=== PATIENT | male | born 1950 | race Caucasian/White ===

== ENCOUNTER 2017-02-12 07:43 | Day surgery (SDC) | payer MEDICARE, OTHER ==
[~2017-02-12] VITALS: Ht 177.8 cm; Wt 97.5 kg
[~2017-02-12 07:43] MED LIST: CLOPIDOGREL75 MG PO; PANTOPRAZOLE SO40 MG PO; SERTRALINE50 MG PO; SUCRALFATE1 GM PO; TYLENOL 8 HOUR650 MG PO
[2017-02-12 09:11] VITALS: BP 132/88
== END 2017-02-12 09:20 | disposition home or self-care (01) ==
LOC: ENDO 07:43 → ORM 09:30
PROVIDERS: ATTEND Surgery
PROC: 0DB48ZX Excision of Esophagogastric Junction, Via Natural or Artificial Opening Endoscopic, Diagnostic (ICD-10-PCS; principal; 2017-02-12)
DX: K25.9 Gastric ulcer, unspecified as acute or chronic, without hemorrhage or perforation (principal); K21.0 Gastro-esophageal reflux disease with esophagitis; K44.9 Diaphragmatic hernia without obstruction or gangrene; E78.5 Hyperlipidemia, unspecified; K29.50 Unspecified chronic gastritis without bleeding; Z95.5 Presence of coronary angioplasty implant and graft

== ENCOUNTER 2022-01-08 08:54 | Emergency (ER) | payer MEDICARE, OTHER ==
[~2022-01-08] VITALS: Ht 177.8 cm; Wt 97.2 kg
[2022-01-08 09:02] VITALS: BP 144/76
[2022-01-08 09:15] VITALS: BP 114/73
[2022-01-08] MEDS ORDERED: ELIQUIS5 MG PO (09:25)
[2022-01-08] MEDS ORDERED: LEVOTHYROXIN75 MCG PO (09:25)
[2022-01-08] MEDS ORDERED: METOPROL TAR25 MG PO (09:26)
[2022-01-08 09:30] VITALS: BP 103/64
[2022-01-08 09:33] LABS: HEMATOCRIT 41.8 % (39.0-50.0); HEMOGLOBIN 14.1 g/dl (14.0-18.0); IMMATURE GRANULOCYTES 0.2 % (0.0-5.0); MEAN CELL VOLUME 90.9 fL CALC (80.0-100.0); MEAN CORPUSCULAR HGB 30.7 pG CALC (26.0-32.0); MEAN CORPUSCULAR HGB CONC 33.7 g/dL CAL (32.0-36.0); RED BLOOD COUNT 4.6 mill/uL (4.70-6.10); RED CELL DISTRI WIDTH 12.6 % (11.5-15.5)
[2022-01-08 09:40] LABS: ALBUMIN 4.2 g/dL (3.2-5.0); ALKALINE PHOSPHATASE 68 u/l (38-126); ANION GAP 12 (6-22 (CALC)); BILIRUBIN, TOTAL 1.4 mg/dL (0.0-1.4); BUN 16 mg/dL (8-23); BUN/CREATININE RATIO 18 (12-20 (CALC)); CARBON DIOXIDE 26 mmol/l (22-30); CHLORIDE 104 mmol/l (95-108); CREATININE 0.9 mg/dL (0.7-1.3); GFR FOR AFR.AMER. > 60 ML/MIN (>=60 (CALC)); GFR OTHER RACES > 60 ML/MIN (>=60 (CALC)); POTASSIUM 4.2 mmol/l (3.5-5.1); SGOT/AST 22 u/l (19-48); SODIUM 138 mmol/l (137-146); TOTAL PROTEIN 6.8 g/dL (6.3-8.2)
[2022-01-08 09:46] VITALS: BP 106/73
[2022-01-08 10:00] VITALS: BP 109/66
[2022-01-08] MEDS ORDERED: CEPHALEXIN500 M1 PO (11:06)
[2022-01-08] MEDS ORDERED: BACTRIM DS1 TAB PO (11:06)
[2022-01-08 11:15] VITALS: BP 110/67
== END 2022-01-08 11:20 | disposition home or self-care (01) ==
LOC: ED 08:54
PROVIDERS: Family Medicine
DX: L03.116 Cellulitis of left lower limb (principal); E78.5 Hyperlipidemia, unspecified; E03.9 Hypothyroidism, unspecified; K21.9 Gastro-esophageal reflux disease without esophagitis; Z95.5 Presence of coronary angioplasty implant and graft; Z96.642 Presence of left artificial hip joint
CPT/HCPCS: Q9967